=== PATIENT | male | born 1965 ===

== ENCOUNTER 2016-10-06 18:51 | Emergency (ER) | payer OTHER ==
[2016-10-06 18:57] VITALS: RESP 16; TEMP 97.7
--- NOTE | 2016-10-06 19:56 | EDPHY ---
H & P Stated Complaint: painful/swollen penis x 1 hr after doing "stretches" had recent inj...? - Personal History Current Tetanus/Diphtheria Vaccine: Unsure Current Tetanus Diphtheria and Acellular Pertussis (TDAP): Unsure - Medical/Surgical History Hx Asthma: No Hx Chronic Respiratory Disease: No Hx Diabetes: No Hx Cardiac Disease: No Hx Renal Disease: No Hx Cirrhosis: No Hx Alcoholism: No Hx HIV/AIDS: No Hx Splenectomy or Spleen Trauma: No Other PMH: eyelid surgery 09/27 - Social History Smoking Status: Never smoked Time Seen by Provider: 10/06/16 19:56 Constitutional: Initial Vital Signs Temperature (C) 36.5 C 10/06/16 18:54 Heart Rate 91 10/06/16 18:54 Respiratory Rate 16 10/06/16 18:54 Blood Pressure 119/82 H 10/06/16 18:54 O2 Sat (%) 98 10/06/16 18:54 O2 Delivery Mode Room Air Medical Decision Making - Diagnostics Imaging Results: MRI shows fluid in the soft tissue near the glans. Corpus callosum and cavernosum and urethra appear to be okay on MRI (Barrera Cervantes) ED Course/Re-evaluation: CHIEF COMPLAINT: Penis swelling and pain HISTORY OF PRESENT ILLNESS: The patient is a 51 y/o male complaining of a swollen penis with associated pain onset after getting an erection today, about 1 hour ago. He get Xiaflex injections directly into his penis for Peyronie's disease and is concerned he has a ruptured corpus callosum or cavernosum. Directly after getting an erection today he developed severe penile pain and subsequently lost the erection. He now has pain, bruising, and swelling around his penis. He has not tried to urinate yet. No other complaints. REVIEW OF SYSTEMS: A 10 point review of systems was performed and is negative with the exception of the elements mentioned in the history of present illness. PHYSICAL EXAM: HR, BP, O2 Sat, RR. Temp noted General Appearance: Alert, well hydrated, appropriate, and non-toxic appearing. Head: Atraumatic without scalp tenderness or obvious injury Eyes: Pupils equal, round, reactive to light and accommodation, EOMI, no trauma , no injection. Nose: Atraumatic, no rhinorrhea, clear. Throat: mucus membranes moist. Neck: Supple Respiratory: No retractions, no distress, no wheezes, and no accessory muscle use. Lungs are clear to auscultation bilaterally. Cardiovascular: Regular rate and rhythm, no murmurs, rubs, or gallops. Good capillary refill all extremities. Gastrointestinal: Abdomen is soft, nontender, non-distended, no masses, no rebound, no guarding, no peritoneal signs. : Penile swelling and ecchymosis ventrally and laterally with tenderness to palpation. Musculoskeletal: Normal active ROM of all extremities, atraumatic. Neurological: Alert, appropriate, and interactive. Nonfocal neuro exam. Skin: No rashes, good turgor, no nodules on palpation. Past medical history: Peyronie's disease Past surgical history: denies Family history: noncontributory Social history: Lives in [place] DIFFERENTIAL DIAGNOSIS: The differential diagnosis for the patient's penile pain included but was not limited to corporal rupture, penile fracture, Peyronie 's disease complication, Xiaflex side effect, other penile trauma. MEDICAL DECISION MAKING: This is a 51 y/o male with a history of Peyronie's disease that he treats with penile Xiaflex injections and presents with moderate penile tenderness, swelling , and ecchymosis after getting an erection today. Xiaflex is known to cause corporal rupture in some patients. Patient will require evaluation for penile fracture and to determine if he will require emergent surgery. Urology paged. UA ordered. 2010: Consulted with Dr. Zhu, urologist. He recommended imaging. Researched appropriate imaging and ordered pelvic MRI to assess corporal structures and rule out penile fracture. Patient may require cystoscopy if he has hematuria. 2100: Patient care signed out to Dr. Cervantes at shift change pending pelvic MRI. (Baltazar Shore) Re-evaluation at 11:15 p.m.. The patient tells me that he was masturbating and had sudden onset of pain and then swelling to the distal end of his penis. He is able to urinate. He looked up on the Internet and was concerned that he may have a rupture in his penis. The exam shows swollen and somewhat bruised distal penis not involving the glands. I have reviewed the MRI with Dr. Forrest who feels that there is fluid in the soft tissue near the glans but no obvious evidence of rupture I have consulted and discussed the case with Dr. osuna, urology, who feels that this is most likely contusion. He feels that should there has been a urethral injury that the patient probably would not be able to urinate or there would be blood in the urine. There is no blood on urinalysis and the patient is able to urinate. We will opt for symptomatic care at this point. Patient's regular neurologist who does the injections is Dr. Hernández of [facility] in [place]. . As this is somewhat of an unusual procedure and our radiologist isn't comfort platelet comfortable reading MRIs of the penis and the urologist here does not do these procedures the patient is encouraged to follow up with his urologist tomorrow. The patient is encouraged to return for difficulty urinating. The patient and I discussed imaging study results, treatment plan including criteria for return. We also discussed importance of follow-up and further evaluation. He expresses understanding and agreement (Barrera Cervantes) Differential Diagnosis: Differential diagnosis includes urethral, corpus cavernosum and corpus callosum injury versus contusion (Barrera Cervantes) - Data Points Laboratory Results: Laboratory Results 10/06/16 20:45 10/06/16 20:45 10/06/16 10/06/16 10/06/16 20:45 20:45 20:40 WBC 8.03 10^3/uL 10^3/uL (3.80-9.50) RBC 4.88 10^6/uL 10^6/uL (4.40-6.38) Hgb 15.4 g/dL g/dL (13.7-17.5) Hct 44.1 % % (40.0-51.0) MCV 90.4 fL fL (81.5-99.8) MCH 31.6 pg pg (27.9-34.1) MCHC 34.9 g/dL g/dL (32.4-36.7) RDW 13.0 % % (11.5-15.2) Plt Count 219 10^3/uL 10^3/uL (150-400) MPV 9.2 fL fL (8.7-11.7) Neut % (Auto) 60.2 % % (39.3-74.2) Lymph % (Auto) 25.2 % % (15.0-45.0) [place] % (Auto) 12.1 % % (4.5-13.0) Eos % (Auto) 1.6 % % (0.6-7.6) Baso % (Auto) 0.5 % % (0.3-1.7) Nucleat RBC Rel Count 0.0 % % (0.0-0.2) Absolute Neuts (auto) 4.84 10^3/uL 10^3/uL (1.70-6.50) Absolute Lymphs (auto) 2.02 10^3/uL 10^3/uL (1.00-3.00) Absolute Monos (auto) 0.97 10^3/uL H 10^3/uL (0.30-0.80) Absolute Eos (auto) 0.13 10^3/uL 10^3/uL (0.03-0.40) Absolute Basos (auto) 0.04 10^3/uL 10^3/uL (0.02-0.10) Absolute Nucleated RBC 0.00 10^3/uL 10^3/uL (0-0.01) Immature Gran % 0.4 % % (0.0-1.1) Immature Gran # 0.03 10^3/uL 10^3/uL (0.00-0.10) Sodium 140 mEq/L mEq/L (134-144) Potassium 4.4 mEq/L mEq/L (3.5-5.2) Chloride 102 mEq/L mEq/L (97-110) Carbon Dioxide 26 mEq/l mEq/l (22-31) Anion Gap 12 mEq/L mEq/L (8-16) BUN 18 mg/dL mg/dL (7-23) Creatinine 0.9 mg/dL mg/dL (0.7-1.3) Estimated GFR > 60 Glucose 105 mg/dL H mg/dL (70-100) Calcium 9.8 mg/dL mg/dL (8.5-10.4) Urine Color YELLOW Urine Appearance CLEAR Urine pH 7.0 (5.0-7.5) Ur Specific [place] 1.017 (1.002-1.030) Urine Protein NEGATIVE (NEGATIVE) Urine Ketones NEGATIVE (NEGATIVE) Urine Blood NEGATIVE (NEGATIVE) Urine Nitrate NEGATIVE (NEGATIVE) Urine Bilirubin NEGATIVE (NEGATIVE) Urine Urobilinogen NEGATIVE EU EU (0.2-1.0) Ur Leukocyte Esterase NEGATIVE (NEGATIVE) Urine RBC 1-3 /hpf /hpf (0-3) Urine WBC 1-3 /hpf /hpf (0-3) Ur Epithelial Cells NONE SEEN /lpf /lpf (NONE-1+) Urine Mucus TRACE /lpf /lpf (NONE-1+) Urine Sperm PRESENT /hpf /hpf (NONE SEEN) Urine Glucose NEGATIVE (NEGATIVE) Departure - Departure Disposition: Home, Routine, Self-Care Clinical Impression: Contusion of penis, initial encounter Qualifiers: Encounter type: initial encounter Qualified Code(s): S30.21XA - Contusion of penis, initial encounter Condition: Good Instructions: Hematoma (ED) Additional Instructions: Ice to penis next 24-48 hours. Ibuprofen 600 mg every 6 hours for discomfort and swelling. Return for inability or difficulty urinating. Call your regular urologist in [place] tomorrow . I will give you the name of our local urologist Dr. zhu. You should be re-evaluated in the next 2-3 days if not improving Referrals: Jomar Zhu MD [Medical Doctor] - 2-3 days, if not improved Report Scribed for: Baltazar Shore Report Scribed by: Rosita Dudley Date of Report: 10/06/16 Time of Report: 21:16
[2016-10-06 21:04] LABS: % IMMATURE GRANULYOCYTES 0.4 % (0.0-1.1); ABSOLUTE IMMATURE GRANULOCYTES 0.03 10^3/uL (0.00-0.10); ADD DIFF? NO; ADD MORPH? NO; ADD SCAN? NO; ATYPICAL LYMPHOCYTE FLAG 0 (0-99); FRAGMENT RBC FLAG 0 (0-99); HEMATOCRIT 44.1 % (40.0-51.0); HEMOGLOBIN 15.4 g/dL (13.7-17.5); LEFT SHIFT FLG 0 (0-99); LIPEMIA HEMOLYSIS FLAG 90 (0-99); MEAN CELL HEMOGLOBIN 31.6 pg (27.9-34.1); MEAN CELL HEMOGLOBIN CONCENTR. 34.9 g/dL (32.4-36.7); MEAN CELL VOLUME 90.4 fL (81.5-99.8); MEAN PLATELET VOLUME 9.2 fL (8.7-11.7); PLATELET CLUMPS FLAG 20 (0-99); PLATELET COUNT 219 10^3/uL (150-400); RED BLOOD CELL COUNT 4.88 10^6/uL (4.40-6.38)
[2016-10-06 21:11] LABS: COLOR YELLOW; LEUKOCYTE ESTERASE,URINE NEGATIVE (NEGATIVE); NITRITE,URINE NEGATIVE (NEGATIVE)
[2016-10-06 21:12] LABS: ANION GAP 12 mEq/L (8-16); CALCIUM 9.8 mg/dL (8.5-10.4); CARBON DIOXIDE 26 mEq/l (22-31); CHLORIDE 102 mEq/L (97-110); CREATININE 0.9 mg/dL (0.7-1.3); GLOMERULAR FILTRATION RATE > 60; GLUCOSE 105 mg/dL (70-100); POTASSIUM 4.4 mEq/L (3.5-5.2); SODIUM 140 mEq/L (134-144)
[2016-10-06 21:14] LABS: MUCUS TRACE /lpf (NONE-1+)
[2016-10-06 23:42] VITALS: BP 114/68; PULSE 61; O2SAT 94
== END 2016-10-06 23:53 | disposition home or self-care (01) ==
DX: N50.89 Other specified disorders of the male genital organs (principal)